=== PATIENT | female | born 1975 | race Caucasian/White ===

== ENCOUNTER 2016-11-07 13:05 | Inpatient (IN) | payer OTHER ==
[~2016-11-07] VITALS: Ht 147.3 cm; Wt 63.0 kg
[~2016-11-07 13:05] MED LIST: MECL-111 PO; OMEP20TA2 PO; VICOT
[2016-11-07] MEDS ORDERED: ALBU8HFA IH (13:45)
[2016-11-07] MEDS ORDERED: DULO30CA2 PO (13:45)
[2016-11-07] MEDS ORDERED: AMIT10TA6 PO (13:45)
[2016-11-07] MEDS ORDERED: PREG75 PO (13:45)
[2016-11-07] MEDS ORDERED: CETI-260 PO (13:45)
[2016-11-07] MEDS ORDERED: TRAM50TA4 PO (13:45)
[2016-11-07] MEDS ORDERED: BECL8.7A6 IH (13:45)
[2016-11-07] MEDS ORDERED: AMIT50TA3 PO (13:49)
[2016-11-07 13:55] LABS: BASOPHILS # (AUTO) 0.17 K/uL (0.00-0.20); EOSINOPHILS # (AUTO) 0.16 K/uL (0.00-0.70); EOSINOPHILS % (AUTO) 1.91 % (1.0-6.0); HEMATOCRIT 36.5 % (36-46); HEMOGLOBIN 12.2 g/dL (12.0-16.0); LYMPHOCYTES % (AUTO) 24.5 % (22.0-44.0); MEAN CORPUSCULAR HEMOGLOBIN 28.5 pg (26.0-34.0); MEAN CORPUSCULAR HGB CONC 33.3 G/dL (31.0-37.0); MEAN CORPUSCULAR VOLUME 86 fL (80-100); MONOCYTES # (AUTO) 0.6 K/uL (0.1-1.0); MONOCYTES % (AUTO) 7.6 % (2.0-9.0); NEUTROPHILS # (AUTO) 5.3 K/uL (1.8-7.7); PLATELET COUNT (AUTO) 277 K/uL (150-450); RED BLOOD CELL COUNT(AUTO) 4.26 MIL/uL (4.00-5.20); WHITE BLOOD COUNT (AUTO) 8.3 K/uL (4.5-11.0)
[2016-11-07 13:57] LABS: ANION GAP 7 mmol/L (8-16); CARBON DIOXIDE 28 mmol/L (22-29); CHLORIDE 103 mmol/L (98-107); CREATININE 0.78 mg/dL (0.60-1.30); GLOMERULAR FILTR. RATE CALC > 60 mL/min (>60); POTASSIUM 3.8 mmol/L (3.5-5.1); SODIUM SERUM 138 mmol/L (136-145); UREA NITROGEN, BLOOD 10 mg/dL (7-18)
[2016-11-07 14:03] LABS: ALANINE AMINOTRANSFERASE 24 U/L (12-78); ALBUMIN 3.3 g/dL (3.4-5.0); ASPARTATE AMINOTRANSFERASE 24 U/L (15-37); BILIRUBIN,TOTAL 0.1 mg/dL (0.1-1.0); TOTAL PROTEIN, SERUM 7.2 g/dL (6.4-8.2)
[2016-11-07] MEDS ORDERED: HydrOXYzine PAMOATE 50 MG CAPSULE PO PRN (14:45)
[2016-11-07] MEDS ORDERED: HALOPERIDOL 5 MG TABLET PO ONE (14:45)
[2016-11-07] MEDS ORDERED: LOPERAMIDE HCL 2 MG CAPSULE PO PRN (14:45)
[2016-11-07] MEDS ORDERED: QUEtiapine FUMARATE 100 MG TABLET PO PRN (14:45)
[2016-11-07] MEDS ORDERED: LORazepam 2 MG TABLET PO ONE (14:45)
[2016-11-07] MEDS ORDERED: GuaiFENesin/D-METHORPHAN [SUGAR-FREE] 200-20MG/10 ML SYRUP UDCUP PO PRN (14:45)
[2016-11-07] MEDS ORDERED: PROMETHAZINE HCL 25 MG TABLET PO PRN (14:45)
[2016-11-07] MEDS ORDERED: MAG HYDROX/AL HYDROX/SIMETH ES 30 ML SUSPENSION UDCUP PO PRN (14:45)
[2016-11-07] MEDS ORDERED: MAGNESIUM HYDROXIDE SUSPENSION 30 ML UDCUP PO PRN (14:45)
[2016-11-07] MEDS ORDERED: ACETAMINOPHEN 325 MG TABLET PO PRN (14:45)
[2016-11-07] MEDS ORDERED: TUBERCULIN, PURIFIED PROTEIN DERIVATIVE 5 TU/0.1 ML SYG ID ONE (14:45)
[2016-11-07] MEDS: THIAMINE HCL 100 MG TABLET PO SCH (17:11)
[2016-11-07] MEDS ORDERED: PNEUMOCOCCAL VACCINE POLYVALENT 0.5 ML VIAL [PPSV23] IM ONE (18:00)
[2016-11-07] MEDS ORDERED: INFLUENZA VIRUS VACCINE QVS 2016-17 (3YR+)/PF 60 MCG/0.5 ML SYRINGE IM ONE (18:00)
[2016-11-07 18:10] VITALS: BP 104/73
[2016-11-07] MEDS ORDERED: TraMADol HCL 50 MG TABLET PO PRN (21:00)
[2016-11-07] MEDS ORDERED: ALBUTEROL SULFATE HFA 90 MCG/PUFF 8 GM INHALER IH PRN (21:00)
[2016-11-07] MEDS ORDERED: QUEtiapine FUMARATE 200 MG TABLET PO SCH (21:00)
[2016-11-07] MEDS: PREGABALIN 75 MG CAPSULE PO SCH (22:03)
[2016-11-07] MEDS: BECLOMETHASONE DIPR 40 MCG/PUFF 8.7 GM INHALER IH SCH (22:03)
[2016-11-08 01:24] VITALS: BP 123/75
[2016-11-08 08:08] VITALS: BP 103/60
[2016-11-08 08:20] LABS: BASOPHILS % (AUTO) 0.5 % (0.0-2.0); EOSINOPHILS % (AUTO) 3.3 % (1.0-6.0); HEMATOCRIT 33.3 % (36-46); HEMOGLOBIN 11.1 g/dL (12.0-16.0); LYMPHOCYTES # (AUTO) 2.3 K/uL (1.0-4.8); MEAN CORPUSCULAR HEMOGLOBIN 28.7 pg (26.0-34.0); MEAN CORPUSCULAR HGB CONC 33.2 G/dL (31.0-37.0); MEAN CORPUSCULAR VOLUME 87 fL (80-100); MONOCYTES # (AUTO) 0.5 K/uL (0.1-1.0); MONOCYTES % (AUTO) 7.9 % (2.0-9.0); NEUTROPHILS # (AUTO) 3.1 K/uL (1.8-7.7); NEUTROPHILS % (AUTO) 50.3 % (40.0-70.0); PLATELET COUNT (AUTO) 253 K/uL (150-450); RED BLOOD CELL COUNT(AUTO) 3.85 MIL/uL (4.00-5.20); RED CELL DISTRIBUTION WIDTH 14.4 % (11.5-14.5); WHITE BLOOD COUNT (AUTO) 6.2 K/uL (4.5-11.0)
[2016-11-08 08:32] LABS: HEMOGLOBIN A1C 5.7 % (4.5-6.2)
[2016-11-08 09:08] LABS: ALANINE AMINOTRANSFERASE 20 U/L (12-78); ALBUMIN 2.6 g/dL (3.4-5.0); ANION GAP 6 mmol/L (8-16); ASPARTATE AMINOTRANSFERASE 21 U/L (15-37); BILIRUBIN,TOTAL 0.2 mg/dL (0.1-1.0); CALCIUM, TOTAL 8.4 mg/dL (8.8-10.5); CARBON DIOXIDE 27 mmol/L (22-29); CHLORIDE 108 mmol/L (98-107); CHOL/HDL RATIO 3.3 (3.9-5.7); CREATININE 0.77 mg/dL (0.60-1.30); GLOMERULAR FILTR. RATE CALC > 60 mL/min (>60); POTASSIUM 3.8 mmol/L (3.5-5.1); SODIUM SERUM 141 mmol/L (136-145); THYROID STIMULATING HORMONE 1.22 uIU/mL (0.36-3.74); UREA NITROGEN, BLOOD 12 mg/dL (7-18)
[2016-11-08] MEDS ORDERED: IBUPROFEN 400 MG TABLET PO PRN (09:45)
[2016-11-08] MEDS ORDERED: ALBUTEROL SULFATE HFA 90 MCG/PUFF 8 GM INHALER IH PRN (09:45)
[2016-11-08] MEDS ORDERED: ACETAMINOPHEN 325 MG TABLET PO PRN (09:45)
[2016-11-08] MEDS: FOLIC ACID 1 MG TABLET PO SCH (10:01)
[2016-11-08] MEDS: MECLIZINE HCL 25 MG TABLET PO SCH (10:01)
[2016-11-08] MEDS: CETIRIZINE HCL 10 MG TABLET PO SCH (10:01)
[2016-11-08] MEDS: THIAMINE HCL 100 MG TABLET PO SCH ×2 (10:01→16:33)
[2016-11-08] MEDS: NALTREXONE HCL 50 MG TABLET PO SCH (10:01)
[2016-11-08] MEDS: OMEPRAZOLE 20 MG CAPSULE PO SCH (10:01)
[2016-11-08] MEDS: DULoxetine HCL 20 MG CAPSULE PO SCH (10:01)
[2016-11-08] MEDS: MULTIVITAMINS WITH MINERALS, THERAPEUTIC TABLET PO SCH (10:01)
[2016-11-08 18:34] VITALS: BP 101/69
[2016-11-08] MEDS: PREGABALIN 75 MG CAPSULE PO SCH (20:30)
[2016-11-08] MEDS: BECLOMETHASONE DIPR 40 MCG/PUFF 8.7 GM INHALER IH SCH (20:30)
[2016-11-08] MEDS ORDERED: QUEtiapine FUMARATE 300 MG TABLET PO SCH (21:00)
[2016-11-08] MEDS: ZOLPIDEM TARTRATE 10 MG TABLET PO PRN (22:47)
[2016-11-09 04:23] VITALS: BP 101/67
[2016-11-09 08:33] LABS: HEMOGLOBIN A1C 5.3 % (4.5-6.2)
[2016-11-09 08:42] VITALS: BP 112/60
[2016-11-09] MEDS: CETIRIZINE HCL 10 MG TABLET PO SCH (08:44)
[2016-11-09] MEDS: FOLIC ACID 1 MG TABLET PO SCH (08:45)
[2016-11-09] MEDS: DULoxetine HCL 20 MG CAPSULE PO SCH (08:45)
[2016-11-09] MEDS: NALTREXONE HCL 50 MG TABLET PO SCH (08:45)
[2016-11-09] MEDS: OMEPRAZOLE 20 MG CAPSULE PO SCH (08:45)
[2016-11-09] MEDS: MECLIZINE HCL 25 MG TABLET PO SCH (08:45)
[2016-11-09] MEDS: MULTIVITAMINS WITH MINERALS, THERAPEUTIC TABLET PO SCH (08:45)
[2016-11-09] MEDS: THIAMINE HCL 100 MG TABLET PO SCH ×2 (08:45→16:00)
[2016-11-09 08:50] LABS: CHOL/HDL RATIO 3.2 (3.9-5.7); THYROID STIMULATING HORMONE 0.61 uIU/mL (0.36-3.74)
[2016-11-09] MEDS: LORazepam 2 MG TABLET PO PRN ×2 (09:27→16:09)
[2016-11-09] MEDS: HALOPERIDOL 5 MG TABLET PO PRN (16:09)
[2016-11-09 16:43] VITALS: BP 100/62
[2016-11-09] MEDS: PREGABALIN 75 MG CAPSULE PO SCH (20:30)
[2016-11-09] MEDS: BECLOMETHASONE DIPR 40 MCG/PUFF 8.7 GM INHALER IH SCH (20:32)
[2016-11-09] MEDS ORDERED: HALOPERIDOL 10 MG TABLET PO SCH (21:00)
[2016-11-09] MEDS: ZOLPIDEM TARTRATE 10 MG TABLET PO PRN (22:17)
[2016-11-10 00:35] VITALS: BP 108/62
[2016-11-10] MEDS: MECLIZINE HCL 25 MG TABLET PO SCH (08:26)
[2016-11-10] MEDS: OMEPRAZOLE 20 MG CAPSULE PO SCH (08:27)
[2016-11-10] MEDS: MULTIVITAMINS WITH MINERALS, THERAPEUTIC TABLET PO SCH (08:27)
[2016-11-10] MEDS: THIAMINE HCL 100 MG TABLET PO SCH ×2 (08:27→16:19)
[2016-11-10] MEDS: DULoxetine HCL 30 MG CAPSULE PO SCH (08:27)
[2016-11-10] MEDS: FOLIC ACID 1 MG TABLET PO SCH (08:27)
[2016-11-10] MEDS: CETIRIZINE HCL 10 MG TABLET PO SCH (08:27)
[2016-11-10] MEDS: NALTREXONE HCL 50 MG TABLET PO SCH (08:27)
[2016-11-10] MEDS: HALOPERIDOL 5 MG TABLET PO PRN (10:13)
[2016-11-10 10:49] VITALS: BP 108/75
[2016-11-10] MEDS: LORazepam 2 MG TABLET PO PRN ×2 (10:49→16:33)
[2016-11-10 16:09] VITALS: BP 112/68
[2016-11-10] MEDS: PREGABALIN 75 MG CAPSULE PO SCH (20:01)
[2016-11-10] MEDS: BECLOMETHASONE DIPR 40 MCG/PUFF 8.7 GM INHALER IH SCH (20:02)
[2016-11-10] MEDS ORDERED: HALOPERIDOL 10 MG TABLET PO SCH (21:00)
[2016-11-11 00:24] VITALS: BP 95/58
[2016-11-11] MEDS: NALTREXONE HCL 50 MG TABLET PO SCH (08:15)
[2016-11-11] MEDS: CETIRIZINE HCL 10 MG TABLET PO SCH (08:15)
[2016-11-11] MEDS: FOLIC ACID 1 MG TABLET PO SCH (08:15)
[2016-11-11] MEDS: DULoxetine HCL 30 MG CAPSULE PO SCH (08:15)
[2016-11-11] MEDS: MULTIVITAMINS WITH MINERALS, THERAPEUTIC TABLET PO SCH (08:15)
[2016-11-11] MEDS: OMEPRAZOLE 20 MG CAPSULE PO SCH (08:15)
[2016-11-11] MEDS: THIAMINE HCL 100 MG TABLET PO SCH (08:15)
[2016-11-11] MEDS: MECLIZINE HCL 25 MG TABLET PO SCH (08:15)
[2016-11-11] MEDS: HALOPERIDOL 5 MG TABLET PO PRN (08:23)
[2016-11-11 09:14] VITALS: BP 86/52
[2016-11-11] MEDS: LORazepam 2 MG TABLET PO PRN (11:08)
[2016-11-11] MEDS ORDERED: HALO10 PO (11:23)
[2016-11-11] MEDS ORDERED: NALT50 PO (11:23)
[2016-11-11] MEDS ORDERED: DULO30CA2 PO ×2 (11:23→12:03)
[2016-11-11] MEDS ORDERED: PREG75 PO (11:28)
[2016-11-11] MEDS ORDERED: HALO10TA15 PO (12:03)
[2016-11-11] MEDS ORDERED: NALT50TA10 PO (12:03)
[2017-02-21] MEDS ORDERED: FERR-89 PO (10:00)
== END 2016-11-11 14:30 | disposition home or self-care (01) | DRG 885 ==
LOC: EMS 13:06 → B2X 14:24
PROVIDERS: ADMIT Psychiatry & Neurology Psychiatry; ATTEND Psychiatry & Neurology Psychiatry
DX: F29 Unspecified psychosis not due to a substance or known physiological condition (principal); K86.1 Other chronic pancreatitis; F32.9 Major depressive disorder, single episode, unspecified; F41.9 Anxiety disorder, unspecified; M79.7 Fibromyalgia; K21.9 Gastro-esophageal reflux disease without esophagitis; F15.10 Other stimulant abuse, uncomplicated; J45.909 Unspecified asthma, uncomplicated; M19.90 Unspecified osteoarthritis, unspecified site; Z87.11 Personal history of peptic ulcer disease; Z79.899 Other long term (current) drug therapy; Z91.19 Patient's noncompliance with other medical treatment and regimen; Z98.51 Tubal ligation status; Z90.49 Acquired absence of other specified parts of digestive tract; Z90.710 Acquired absence of both cervix and uterus; Z28.21 Immunization not carried out because of patient refusal
CPT/HCPCS: 71020; 83036; 84439; 84443; 86592; 90471; 93005; 99285; G0480; J3535

== ENCOUNTER 2016-11-13 09:51 | Inpatient (IN) | payer OTHER ==
[~2016-11-13] VITALS: Ht 149.9 cm; Wt 65.7 kg
[~2016-11-13 09:51] MED LIST changes: +ALBU8HFA IH; +AMIT10TA6 PO; +AMIT50TA3 PO; +BECL8.7A6 IH; +CETI-260 PO; +DULO30CA2 PO; +HALO10 PO; +HALO10TA15 PO; +NALT50 PO; +NALT50TA10 PO; +PREG75 PO; +TRAM50TA4 PO
[2016-11-13 11:22] VITALS: BP 104/74
[2016-11-13] MEDS ORDERED: INFLUENZA VIRUS VACCINE QVS 2016-17 (3YR+)/PF 60 MCG/0.5 ML SYRINGE IM ONE (11:30)
[2016-11-13] MEDS ORDERED: MAGNESIUM HYDROXIDE SUSPENSION 30 ML UDCUP PO PRN (11:45)
[2016-11-13] MEDS ORDERED: ZOLPIDEM TARTRATE 10 MG TABLET PO PRN (11:45)
[2016-11-13] MEDS ORDERED: LOPERAMIDE HCL 2 MG CAPSULE PO PRN (11:45)
[2016-11-13] MEDS ORDERED: ACETAMINOPHEN 325 MG TABLET PO PRN (11:45)
[2016-11-13] MEDS ORDERED: MAG HYDROX/AL HYDROX/SIMETH ES 30 ML SUSPENSION UDCUP PO PRN (11:45)
[2016-11-13 19:27] VITALS: BP 123/96
[2016-11-13] MEDS: LORazepam 2 MG TABLET PO PRN (19:28)
[2016-11-13] MEDS: QUEtiapine FUMARATE 100 MG TABLET PO PRN (20:24)
[2016-11-14 05:00] VITALS: BP 103/65
[2016-11-14 06:52] VITALS: BP 128/75
[2016-11-14] MEDS: QUEtiapine FUMARATE 100 MG TABLET PO PRN ×2 (06:53→16:39)
[2016-11-14] MEDS: LORazepam 2 MG TABLET PO PRN ×3 (06:53→20:32)
[2016-11-14] MEDS ORDERED: INFLUENZA VIRUS VACCINE QVS 2016-17 (3YR+)/PF 60 MCG/0.5 ML SYRINGE IM ONE (07:15)
[2016-11-14 07:59] LABS: BASOPHILS % (AUTO) 1.1 % (0.0-2.0); EOSINOPHILS % (AUTO) 5.5 % (1.0-6.0); HEMATOCRIT 35.8 % (36-46); HEMOGLOBIN 11.8 g/dL (12.0-16.0); LYMPHOCYTES % (AUTO) 37.6 % (22.0-44.0); MEAN CORPUSCULAR HEMOGLOBIN 28.4 pg (26.0-34.0); MEAN CORPUSCULAR HGB CONC 32.9 G/dL (31.0-37.0); MEAN CORPUSCULAR VOLUME 86 fL (80-100); MONOCYTES # (AUTO) 0.5 K/uL (0.1-1.0); MONOCYTES % (AUTO) 6.7 % (2.0-9.0); NEUTROPHILS # (AUTO) 3.9 K/uL (1.8-7.7); NEUTROPHILS % (AUTO) 49.1 % (40.0-70.0); PLATELET COUNT (AUTO) 279 K/uL (150-450); RED BLOOD CELL COUNT(AUTO) 4.15 MIL/uL (4.00-5.20); RED CELL DISTRIBUTION WIDTH 14.7 % (11.5-14.5); WHITE BLOOD COUNT (AUTO) 7.9 K/uL (4.5-11.0)
[2016-11-14 08:44] LABS: ALANINE AMINOTRANSFERASE 23 U/L (12-78); ALBUMIN 2.8 g/dL (3.4-5.0); ANION GAP 9 mmol/L (8-16); ASPARTATE AMINOTRANSFERASE 20 U/L (15-37); BILIRUBIN,TOTAL 0.1 mg/dL (0.1-1.0); CALCIUM, TOTAL 8.5 mg/dL (8.8-10.5); CARBON DIOXIDE 25 mmol/L (22-29); CHLORIDE 107 mmol/L (98-107); CREATININE 0.81 mg/dL (0.60-1.30); GLOMERULAR FILTR. RATE CALC > 60 mL/min (>60); SODIUM SERUM 141 mmol/L (136-145); THYROID STIMULATING HORMONE 3.48 uIU/mL (0.36-3.74); TOTAL PROTEIN, SERUM 6.4 g/dL (6.4-8.2); UREA NITROGEN, BLOOD 13 mg/dL (7-18)
[2016-11-14 09:15] VITALS: BP 125/78
[2016-11-14] MEDS: DULoxetine HCL 30 MG CAPSULE PO SCH (09:30)
[2016-11-14 10:22] LABS: APPEARANCE,URINE CLEAR (CLEAR); GLUCOSE, URINE (UA) NEGATIVE (NEGATIVE); KETONES,URINE NEGATIVE (NEGATIVE); LEUKOCYTE ESTERASE ,URINE NEGATIVE (NEGATIVE); OCCULT BLOOD,URINE NEGATIVE (NEGATIVE); PROTEIN,URINE NEGATIVE (NEGATIVE)
[2016-11-14 10:25] LABS: ADD UA MICROSCOPIC NO
[2016-11-14 16:02] VITALS: BP 115/81
[2016-11-14] MEDS ORDERED: HALOPERIDOL 5 MG TABLET PO SCH (21:00)
[2016-11-15] VITALS (7 sets, daily range): BP systolic 88–114; BP diastolic 60–73
[2016-11-15] MEDS: QUEtiapine FUMARATE 100 MG TABLET PO PRN ×2 (06:36→15:52)
[2016-11-15] MEDS: HALOPERIDOL 5 MG TABLET PO SCH ×2 (09:45→20:30)
[2016-11-15] MEDS: DULoxetine HCL 30 MG CAPSULE PO SCH (09:46)
[2016-11-15] MEDS: LORazepam 2 MG TABLET PO PRN ×2 (13:42→21:31)
[2016-11-15] MEDS: PREGABALIN 75 MG CAPSULE PO SCH (20:30)
[2016-11-16 06:42] VITALS: BP 97/62
[2016-11-16] MEDS: DULoxetine HCL 30 MG CAPSULE PO SCH (08:37)
[2016-11-16] MEDS: HALOPERIDOL 5 MG TABLET PO SCH ×2 (08:37→20:37)
[2016-11-16] MEDS: QUEtiapine FUMARATE 100 MG TABLET PO PRN (08:37)
[2016-11-16 08:52] VITALS: BP 82/58
[2016-11-16 09:17] VITALS: BP 103/69
[2016-11-16] MEDS ORDERED: MOM30 PO (10:14)
[2016-11-16] MEDS ORDERED: QUET100T PO (10:14)
[2016-11-16] MEDS ORDERED: HALO5 PO (10:14)
[2016-11-16] MEDS ORDERED: LORA2TAB2 PO (10:14)
[2016-11-16] MEDS ORDERED: GuaiFENesin/D-METHORPHAN [SUGAR-FREE] 200-20MG/10 ML SYRUP UDCUP PO PRN (13:00)
[2016-11-16] MEDS ORDERED: HydrOXYzine PAMOATE 50 MG CAPSULE PO PRN (13:00)
[2016-11-16] MEDS: CEPHALEXIN MONOHYDRATE 500 MG CAPSULE PO SCH ×3 (13:59→20:37)
[2016-11-16] MEDS ORDERED: HALOPERIDOL 5 MG TABLET PO PRN (15:15)
[2016-11-16 16:15] VITALS: BP 101/61
[2016-11-16] MEDS: THIAMINE HCL 100 MG TABLET PO SCH (16:33)
[2016-11-16] MEDS: PREGABALIN 75 MG CAPSULE PO SCH (20:37)
[2016-11-17 02:20] VITALS: BP 98/64
[2016-11-17 08:43] VITALS: BP 108/63
[2016-11-17] MEDS: CEPHALEXIN MONOHYDRATE 500 MG CAPSULE PO SCH ×4 (09:47→20:35)
[2016-11-17] MEDS: THIAMINE HCL 100 MG TABLET PO SCH ×2 (09:47→16:47)
[2016-11-17] MEDS: DULoxetine HCL 30 MG CAPSULE PO SCH (09:47)
[2016-11-17] MEDS: FOLIC ACID 1 MG TABLET PO SCH (09:47)
[2016-11-17] MEDS: HALOPERIDOL 5 MG TABLET PO SCH ×2 (09:47→20:35)
[2016-11-17] MEDS: LORazepam 2 MG TABLET PO PRN ×2 (09:47→14:37)
[2016-11-17] MEDS: NALTREXONE HCL 50 MG TABLET PO SCH (09:47)
[2016-11-17] MEDS: MULTIVITAMINS WITH MINERALS, THERAPEUTIC TABLET PO SCH (09:47)
[2016-11-17] MEDS ORDERED: DULO20CA30 PO (13:55)
[2016-11-17] MEDS ORDERED: NALT50 PO (13:55)
[2016-11-17] MEDS ORDERED: HALO5 PO (13:55)
[2016-11-17] MEDS ORDERED: PREG75 PO (13:55)
[2016-11-17 16:05] VITALS: BP 104/68
[2016-11-17] MEDS: PREGABALIN 75 MG CAPSULE PO SCH (20:35)
[2016-11-18 05:12] VITALS: BP 122/75
[2016-11-18 07:56] LABS: BASOPHILS % (AUTO) 0.8 % (0.0-2.0); EOSINOPHILS % (AUTO) 3.6 % (1.0-6.0); HEMATOCRIT 35.4 % (36-46); HEMOGLOBIN 11.6 g/dL (12.0-16.0); LYMPHOCYTES # (AUTO) 3.2 K/uL (1.0-4.8); LYMPHOCYTES % (AUTO) 40.4 % (22.0-44.0); MEAN CORPUSCULAR HEMOGLOBIN 28.6 pg (26.0-34.0); MEAN CORPUSCULAR HGB CONC 32.8 G/dL (31.0-37.0); MEAN CORPUSCULAR VOLUME 87 fL (80-100); MONOCYTES # (AUTO) 0.7 K/uL (0.1-1.0); NEUTROPHILS # (AUTO) 3.6 K/uL (1.8-7.7); NEUTROPHILS % (AUTO) 46.2 % (40.0-70.0); PLATELET COUNT (AUTO) 310 K/uL (150-450); RED BLOOD CELL COUNT(AUTO) 4.07 MIL/uL (4.00-5.20); RED CELL DISTRIBUTION WIDTH 14.7 % (11.5-14.5); WHITE BLOOD COUNT (AUTO) 7.8 K/uL (4.5-11.0)
[2016-11-18] MEDS: NALTREXONE HCL 50 MG TABLET PO SCH (08:17)
[2016-11-18] MEDS: THIAMINE HCL 100 MG TABLET PO SCH (08:17)
[2016-11-18] MEDS: MULTIVITAMINS WITH MINERALS, THERAPEUTIC TABLET PO SCH (08:17)
[2016-11-18] MEDS: CEPHALEXIN MONOHYDRATE 500 MG CAPSULE PO SCH (08:17)
[2016-11-18] MEDS: FOLIC ACID 1 MG TABLET PO SCH (08:17)
[2016-11-18] MEDS: HALOPERIDOL 5 MG TABLET PO SCH (08:18)
[2016-11-18 08:19] LABS: ANION GAP 7 mmol/L (8-16); CALCIUM, TOTAL 8.3 mg/dL (8.8-10.5); CARBON DIOXIDE 26 mmol/L (22-29); CHLORIDE 104 mmol/L (98-107); CREATININE 0.76 mg/dL (0.60-1.30); GLOMERULAR FILTR. RATE CALC > 60 mL/min (>60); POTASSIUM 3.9 mmol/L (3.5-5.1); SODIUM SERUM 137 mmol/L (136-145); UREA NITROGEN, BLOOD 14 mg/dL (7-18)
[2016-11-18] MEDS ORDERED: DULoxetine HCL 20 MG CAPSULE PO SCH (09:00)
[2016-11-18] MEDS ORDERED: DULO20CA30 PO (09:03)
[2016-11-18] MEDS ORDERED: THIA100 PO (09:09)
[2016-11-18] MEDS ORDERED: FOLI1 PO (09:09)
[2016-11-18] MEDS ORDERED: MULT-248 PO (09:09)
[2016-11-18] MEDS ORDERED: CEPH500 PO (09:09)
[2017-02-21] MEDS ORDERED: FERR-89 PO (10:00)
== END 2016-11-18 09:25 | disposition home or self-care (01) | DRG 885 ==
LOC: B2S 12:04 → B2X 12:04 → EDSTATUS 12:11 → B2X 23:05
PROVIDERS: ADMIT Psychiatry & Neurology Psychiatry; ATTEND Psychiatry & Neurology Psychiatry
PROC: 3E0234Z Introduction of Serum, Toxoid and Vaccine into Muscle, Percutaneous Approach (ICD-10-PCS; principal; 2016-11-14)
DX: F25.0 Schizoaffective disorder, bipolar type (principal); K86.1 Other chronic pancreatitis; R45.851 Suicidal ideations; F12.10 Cannabis abuse, uncomplicated; F15.10 Other stimulant abuse, uncomplicated; J45.909 Unspecified asthma, uncomplicated; K21.9 Gastro-esophageal reflux disease without esophagitis; J30.9 Allergic rhinitis, unspecified; R40.0 Somnolence; I95.9 Hypotension, unspecified; F41.9 Anxiety disorder, unspecified; G89.29 Other chronic pain; M19.90 Unspecified osteoarthritis, unspecified site; M79.7 Fibromyalgia; Z90.49 Acquired absence of other specified parts of digestive tract; Z90.710 Acquired absence of both cervix and uterus; Z88.8 Allergy status to other drugs, medicaments and biological substances; Z23 Encounter for immunization; Z87.11 Personal history of peptic ulcer disease; Z91.5 Personal history of self-harm; Z91.14 Patient's other noncompliance with medication regimen
CPT/HCPCS: 80173; 80307; 84439; 84443; 87081; 90471; 93005

== ENCOUNTER 2016-11-13 13:39 | Emergency (ER) | payer OTHER ==
[~2016-11-13] VITALS: Ht 139.7 cm; Wt 59.1 kg
[~2016-11-13 13:39] MED LIST changes: -AMIT10TA6 PO; -AMIT50TA3 PO; -TRAM50TA4 PO; -VICOT
[2016-11-13] MEDS ORDERED: SODIUM CHLORIDE 0.9% 1,000 ML IV ONE (14:30)
[2016-11-13 15:03] LABS: BASOPHILS % (AUTO) 0.5 % (0.0-2.0); EOSINOPHILS % (AUTO) 4.6 % (1.0-6.0); HEMATOCRIT 36.4 % (36-46); HEMOGLOBIN 12.2 g/dL (12.0-16.0); LYMPHOCYTES # (AUTO) 2.6 K/uL (1.0-4.8); LYMPHOCYTES % (AUTO) 27.4 % (22.0-44.0); MEAN CORPUSCULAR HEMOGLOBIN 28.5 pg (26.0-34.0); MEAN CORPUSCULAR HGB CONC 33.6 G/dL (31.0-37.0); MEAN CORPUSCULAR VOLUME 85 fL (80-100); MONOCYTES # (AUTO) 0.6 K/uL (0.1-1.0); MONOCYTES % (AUTO) 6.2 % (2.0-9.0); NEUTROPHILS # (AUTO) 5.9 K/uL (1.8-7.7); NEUTROPHILS % (AUTO) 61.3 % (40.0-70.0); PLATELET COUNT (AUTO) 279 K/uL (150-450); RED BLOOD CELL COUNT(AUTO) 4.28 MIL/uL (4.00-5.20); RED CELL DISTRIBUTION WIDTH 13.9 % (11.5-14.5); WHITE BLOOD COUNT (AUTO) 9.6 K/uL (4.5-11.0)
[2016-11-13 15:25] LABS: ANION GAP 7 mmol/L (8-16); CALCIUM, TOTAL 8.9 mg/dL (8.8-10.5); CARBON DIOXIDE 26 mmol/L (22-29); CHLORIDE 107 mmol/L (98-107); CREATININE 0.96 mg/dL (0.60-1.30); GLOMERULAR FILTR. RATE CALC > 60 mL/min (>60); POTASSIUM 4.4 mmol/L (3.5-5.1); SODIUM SERUM 140 mmol/L (136-145); UREA NITROGEN, BLOOD 9 mg/dL (7-18)
[2016-11-13 15:32] LABS: ALANINE AMINOTRANSFERASE 30 U/L (12-78); ALBUMIN 3.3 g/dL (3.4-5.0); ASPARTATE AMINOTRANSFERASE 21 U/L (15-37); BILIRUBIN,TOTAL 0.1 mg/dL (0.1-1.0); TOTAL PROTEIN, SERUM 7.3 g/dL (6.4-8.2)
[2016-11-13 16:06] LABS: ACETAMINOPHEN < 2 mcg/mL (10-30)
[2016-11-13 16:23] LABS: SALICYLATE < 2.8 mg/dL (2.8-20.0)
[2016-11-13] MEDS ORDERED: ONDANSETRON HCL 4 MG/2 ML VIAL IVP ONE (17:45)
[2016-11-13 18:00] VITALS: BP 130/78
[2017-02-21] MEDS ORDERED: FERR-89 PO (10:00)
== END 2016-11-13 18:17 | disposition home or self-care (01) ==
LOC: EMS 13:42
DX: T43.012A Poisoning by tricyclic antidepressants, intentional self-harm, initial encounter (principal); F25.9 Schizoaffective disorder, unspecified; F19.90 Other psychoactive substance use, unspecified, uncomplicated; Z88.8 Allergy status to other drugs, medicaments and biological substances; Y92.89 Other specified places as the place of occurrence of the external cause
CPT/HCPCS: 36415; 80053; 80307; 84703; 85025; 93005; 96361; 96374; 99285; G0480 ×2; G0481; J2405; J7030

== ENCOUNTER 2016-11-16 10:01 | Emergency (ER) | payer OTHER ==
[~2016-11-16] VITALS: Ht 147.3 cm; Wt 56.8 kg
[2016-11-16 10:08] VITALS: BP 112/75
[2016-11-16] MEDS ORDERED: LORA2TAB2 PO (10:14)
[2016-11-16] MEDS ORDERED: MOM30 PO (10:14)
[2016-11-16] MEDS ORDERED: HALO5 PO (10:14)
[2016-11-16] MEDS ORDERED: QUET100T PO (10:14)
[2016-11-16] MEDS ORDERED: CEPHALEXIN MONOHYDRATE 500 MG CAPSULE PO ONE (10:30)
[2016-11-16] MEDS ORDERED: IBUPROFEN 600 MG TABLET PO ONE (10:30)
[2016-11-17] MEDS ORDERED: NALT50 PO (13:55)
[2016-11-17] MEDS ORDERED: PREG75 PO (13:55)
[2016-11-17] MEDS ORDERED: HALO5 PO (13:55)
[2016-11-17] MEDS ORDERED: DULO20CA30 PO (13:55)
[2017-02-21] MEDS ORDERED: FERR-89 PO (10:00)
== END 2016-11-16 11:23 | disposition other institution (70) ==
LOC: EMS 10:03
DX: T78.49XA Other allergy, initial encounter (principal); F25.9 Schizoaffective disorder, unspecified; M54.5 Low back pain; F32.9 Major depressive disorder, single episode, unspecified; Z88.8 Allergy status to other drugs, medicaments and biological substances; X58.XXXA Exposure to other specified factors, initial encounter
CPT/HCPCS: 99283

== ENCOUNTER 2017-02-09 12:09 | Inpatient (IN) | payer MEDICAID ==
[~2017-02-09] VITALS: Ht 147.3 cm; Wt 67.4 kg
[~2017-02-09 12:09] MED LIST changes: -ALBU8HFA IH; -BECL8.7A6 IH; +CEPH500 PO; -CETI-260 PO; +DULO20CA30 PO; -DULO30CA2 PO; +FOLI1 PO; -HALO10 PO; +HALO5 PO; -MECL-111 PO; +MULT-248 PO; -OMEP20TA2 PO; +THIA100 PO
[2017-02-09 13:00] VITALS: BP 129/73
[2017-02-09] MEDS ORDERED: HydrOXYzine PAMOATE 50 MG CAPSULE PO PRN (13:15)
[2017-02-09] MEDS ORDERED: MAGNESIUM HYDROXIDE SUSPENSION 30 ML UDCUP PO PRN (13:15)
[2017-02-09] MEDS ORDERED: GuaiFENesin/D-METHORPHAN [SUGAR-FREE] 200-20MG/10 ML SYRUP UDCUP PO PRN (13:15)
[2017-02-09] MEDS ORDERED: PALIPERIDONE PALMITATE 234 MG/1.5 ML SYRINGE IM ONE (13:15)
[2017-02-09] MEDS ORDERED: LOPERAMIDE HCL 2 MG CAPSULE PO PRN (13:15)
[2017-02-09] MEDS ORDERED: ACETAMINOPHEN 325 MG TABLET PO PRN (13:15)
[2017-02-09] MEDS ORDERED: MAG HYDROX/AL HYDROX/SIMETH ES 30 ML SUSPENSION UDCUP PO PRN (13:15)
[2017-02-09] MEDS ORDERED: PROMETHAZINE HCL 25 MG TABLET PO PRN (13:15)
[2017-02-09] MEDS: QUEtiapine FUMARATE 100 MG TABLET PO PRN (13:50)
[2017-02-09] MEDS: LORazepam 2 MG TABLET PO PRN (13:51)
[2017-02-09 16:13] VITALS: BP 118/65
[2017-02-09] MEDS: THIAMINE HCL 100 MG TABLET PO SCH (16:44)
[2017-02-09] MEDS: PREGABALIN 75 MG CAPSULE PO SCH (20:27)
[2017-02-09] MEDS: ZOLPIDEM TARTRATE 10 MG TABLET PO PRN (20:39)
[2017-02-10 04:08] VITALS: BP 110/67
[2017-02-10] MEDS: LORazepam 2 MG TABLET PO PRN ×2 (04:09→12:11)
[2017-02-10 08:28] LABS: BASOPHILS # (AUTO) 0.05 K/uL (0.00-0.20); BASOPHILS % (AUTO) 0.6 % (0.0-2.0); EOSINOPHILS # (AUTO) 0.07 K/uL (0.00-0.70); EOSINOPHILS % (AUTO) 0.78 % (1.0-6.0); HEMATOCRIT 35.8 % (36-46); HEMOGLOBIN 11.9 g/dL (12.0-16.0); LYMPHOCYTES % (AUTO) 33.1 % (22.0-44.0); MEAN CORPUSCULAR HEMOGLOBIN 29.3 pg (26.0-34.0); MEAN CORPUSCULAR HGB CONC 33.4 G/dL (31.0-37.0); MEAN CORPUSCULAR VOLUME 88 fL (80-100); MONOCYTES # (AUTO) 0.9 K/uL (0.1-1.0); MONOCYTES % (AUTO) 9.9 % (2.0-9.0); NEUTROPHILS % (AUTO) 55.6 % (40.0-70.0); PLATELET COUNT (AUTO) 284 K/uL (150-450); RED BLOOD CELL COUNT(AUTO) 4.08 MIL/uL (4.00-5.20); RED CELL DISTRIBUTION WIDTH 15.5 % (11.5-14.5); WHITE BLOOD COUNT (AUTO) 8.9 K/uL (4.5-11.0)
[2017-02-10] MEDS: NALTREXONE HCL 50 MG TABLET PO SCH (08:33)
[2017-02-10] MEDS: FOLIC ACID 1 MG TABLET PO SCH (08:33)
[2017-02-10] MEDS: THIAMINE HCL 100 MG TABLET PO SCH ×2 (08:33→16:16)
[2017-02-10] MEDS: MULTIVITAMINS, THERAPEUTIC TABLET PO SCH (08:33)
[2017-02-10] MEDS: DULoxetine HCL 20 MG CAPSULE PO SCH (08:33)
[2017-02-10] MEDS ORDERED: MULTIVITAMINS WITH MINERALS, THERAPEUTIC TABLET PO SCH (09:00)
[2017-02-10 09:17] LABS: HEMOGLOBIN A1C 5.7 % (4.5-6.2)
[2017-02-10 09:55] LABS: ALANINE AMINOTRANSFERASE 21 U/L (12-78); ALBUMIN 3.3 g/dL (3.4-5.0); ANION GAP 10 mmol/L (8-16); ASPARTATE AMINOTRANSFERASE 14 U/L (15-37); BILIRUBIN,TOTAL 0.3 mg/dL (0.1-1.0); CALCIUM, TOTAL 8.7 mg/dL (8.8-10.5); CARBON DIOXIDE 25 mmol/L (22-29); CHLORIDE 105 mmol/L (98-107); CHOL/HDL RATIO 2.8 (3.9-5.7); CREATININE 0.72 mg/dL (0.60-1.30); GLOMERULAR FILTR. RATE CALC > 60 mL/min (>60); SODIUM SERUM 140 mmol/L (136-145); TOTAL PROTEIN, SERUM 7.2 g/dL (6.4-8.2); UREA NITROGEN, BLOOD 13 mg/dL (7-18)
[2017-02-10 10:14] LABS: APPEARANCE,URINE CLOUDY (CLEAR); GLUCOSE, URINE (UA) NEGATIVE (NEGATIVE); KETONES,URINE 40 mg/dL (NEGATIVE); LEUKOCYTE ESTERASE ,URINE NEGATIVE (NEGATIVE); OCCULT BLOOD,URINE NEGATIVE (NEGATIVE); PROTEIN,URINE POS 1+ (NEGATIVE)
[2017-02-10 10:31] LABS: ADD UA MICROSCOPIC YES
[2017-02-10 10:35] LABS: RBC,URINE None Seen /HPF (0-2)
[2017-02-10 10:36] LABS: SQUAMOUS EPITHELIAL CELL,UR Many /LPF (None Seen); WBC,URINE 0-2 /HPF (0-5)
[2017-02-10] MEDS ORDERED: POTASSIUM CHLORIDE 20 MEQ ER TABLET PO ONE (12:00)
[2017-02-10 12:27] VITALS: BP_SYST 108; BP_SYST 115; BP_DIAS 63; BP_DIAS 69
[2017-02-10] MEDS: QUEtiapine FUMARATE 100 MG TABLET PO PRN (12:50)
[2017-02-10 16:00] VITALS: BP 108/64
[2017-02-10] MEDS ORDERED: MAGNESIUM HYDROXIDE SUSPENSION 30 ML UDCUP PO PRN (20:30)
[2017-02-10] MEDS ORDERED: ALBUTEROL SULFATE HFA 90 MCG/PUFF 8 GM INHALER IH PRN (20:30)
[2017-02-10] MEDS: PREGABALIN 75 MG CAPSULE PO SCH (20:52)
[2017-02-11 06:00] VITALS: BP 120/69
[2017-02-11] MEDS: FERROUS SULFATE 325 MG EC TABLET PO SCH ×2 (07:22→16:52)
[2017-02-11 08:54] VITALS: BP 105/66
[2017-02-11] MEDS: DULoxetine HCL 20 MG CAPSULE PO SCH (08:57)
[2017-02-11] MEDS: THIAMINE HCL 100 MG TABLET PO SCH ×2 (08:58→16:52)
[2017-02-11] MEDS: NALTREXONE HCL 50 MG TABLET PO SCH (08:58)
[2017-02-11] MEDS: FOLIC ACID 1 MG TABLET PO SCH (08:58)
[2017-02-11] MEDS: MULTIVITAMINS, THERAPEUTIC TABLET PO SCH (08:58)
[2017-02-11 09:48] LABS: ANION GAP 10 mmol/L (8-16); CALCIUM, TOTAL 8.9 mg/dL (8.8-10.5); CARBON DIOXIDE 25 mmol/L (22-29); CHLORIDE 110 mmol/L (98-107); CHOL/HDL RATIO 3.1 (3.9-5.7); CREATININE 0.68 mg/dL (0.60-1.30); GLOMERULAR FILTR. RATE CALC > 60 mL/min (>60); POTASSIUM 4.5 mmol/L (3.5-5.1); SODIUM SERUM 145 mmol/L (136-145); THYROID STIMULATING HORMONE 0.28 uIU/mL (0.36-3.74); UREA NITROGEN, BLOOD 16 mg/dL (7-18)
[2017-02-11] MEDS: QUEtiapine FUMARATE 100 MG TABLET PO PRN ×3 (10:05→20:30)
[2017-02-11] MEDS: LORazepam 2 MG TABLET PO PRN ×2 (10:05→20:29)
[2017-02-11 16:00] VITALS: BP 108/69
[2017-02-11] MEDS: PREGABALIN 75 MG CAPSULE PO SCH (20:06)
[2017-02-12] MEDS: FERROUS SULFATE 325 MG EC TABLET PO SCH ×2 (06:27→16:30)
[2017-02-12] MEDS: MULTIVITAMINS, THERAPEUTIC TABLET PO SCH (09:45)
[2017-02-12] MEDS: FOLIC ACID 1 MG TABLET PO SCH (09:45)
[2017-02-12] MEDS: NALTREXONE HCL 50 MG TABLET PO SCH (09:46)
[2017-02-12] MEDS: THIAMINE HCL 100 MG TABLET PO SCH ×2 (09:46→16:30)
[2017-02-12] MEDS: DULoxetine HCL 20 MG CAPSULE PO SCH (09:46)
[2017-02-12 09:51] VITALS: BP 93/67
[2017-02-12] MEDS: QUEtiapine FUMARATE 100 MG TABLET PO PRN (13:44)
[2017-02-12 16:05] VITALS: BP 111/64
[2017-02-12] MEDS: LORazepam 2 MG TABLET PO PRN (16:30)
[2017-02-12] MEDS: ZOLPIDEM TARTRATE 10 MG TABLET PO PRN (20:06)
[2017-02-12] MEDS: PREGABALIN 75 MG CAPSULE PO SCH (20:06)
[2017-02-13 00:50] VITALS: BP 101/67
[2017-02-13] MEDS: QUEtiapine FUMARATE 100 MG TABLET PO PRN ×2 (06:06→12:16)
[2017-02-13] MEDS: FERROUS SULFATE 325 MG EC TABLET PO SCH ×2 (06:12→16:50)
[2017-02-13 08:22] VITALS: BP 97/56
[2017-02-13] MEDS ORDERED: PALIPERIDONE PALMITATE 156 MG/ML SYRINGE IM ONE (09:00)
[2017-02-13] MEDS: THIAMINE HCL 100 MG TABLET PO SCH ×2 (09:52→16:50)
[2017-02-13] MEDS: NALTREXONE HCL 50 MG TABLET PO SCH (09:52)
[2017-02-13] MEDS: MULTIVITAMINS, THERAPEUTIC TABLET PO SCH (09:52)
[2017-02-13] MEDS: DULoxetine HCL 20 MG CAPSULE PO SCH (09:52)
[2017-02-13] MEDS: FOLIC ACID 1 MG TABLET PO SCH (09:52)
[2017-02-13 10:40] VITALS: BP 94/62
[2017-02-13 12:16] VITALS: BP 108/68
[2017-02-13] MEDS: LORazepam 2 MG TABLET PO PRN ×2 (14:34→20:52)
[2017-02-13 16:10] VITALS: BP 112/66
[2017-02-13] MEDS: PREGABALIN 75 MG CAPSULE PO SCH (20:52)
[2017-02-14] MEDS: QUEtiapine FUMARATE 100 MG TABLET PO PRN ×3 (00:03→17:47)
[2017-02-14 02:58] VITALS: BP 106/66
[2017-02-14] MEDS: FERROUS SULFATE 325 MG EC TABLET PO SCH ×2 (07:00→17:46)
[2017-02-14 08:29] VITALS: BP 88/68
[2017-02-14] MEDS: DULoxetine HCL 20 MG CAPSULE PO SCH (09:33)
[2017-02-14] MEDS: MULTIVITAMINS, THERAPEUTIC TABLET PO SCH (09:33)
[2017-02-14] MEDS: THIAMINE HCL 100 MG TABLET PO SCH ×2 (09:33→17:46)
[2017-02-14] MEDS: NALTREXONE HCL 50 MG TABLET PO SCH (09:33)
[2017-02-14] MEDS: FOLIC ACID 1 MG TABLET PO SCH (09:33)
[2017-02-14] MEDS: LORazepam 2 MG TABLET PO PRN (15:33)
[2017-02-14 16:00] VITALS: BP 120/67
[2017-02-14] MEDS: PREGABALIN 75 MG CAPSULE PO SCH (20:52)
[2017-02-15] MEDS: FERROUS SULFATE 325 MG EC TABLET PO SCH ×2 (06:37→17:02)
[2017-02-15 07:11] VITALS: BP 107/69
[2017-02-15] MEDS: QUEtiapine FUMARATE 100 MG TABLET PO PRN ×3 (07:16→16:10)
[2017-02-15 08:21] VITALS: BP 111/70
[2017-02-15] MEDS: DULoxetine HCL 20 MG CAPSULE PO SCH (08:26)
[2017-02-15] MEDS: NALTREXONE HCL 50 MG TABLET PO SCH (08:26)
[2017-02-15] MEDS: FOLIC ACID 1 MG TABLET PO SCH (08:26)
[2017-02-15] MEDS: LORazepam 2 MG TABLET PO PRN ×2 (08:26→18:43)
[2017-02-15] MEDS: THIAMINE HCL 100 MG TABLET PO SCH ×2 (08:26→17:02)
[2017-02-15] MEDS: MULTIVITAMINS, THERAPEUTIC TABLET PO SCH (08:26)
[2017-02-15 16:00] VITALS: BP 104/67
[2017-02-15] MEDS: PREGABALIN 75 MG CAPSULE PO SCH (20:24)
[2017-02-15] MEDS ORDERED: OLANZapine 5 MG RAPDIS TABLET PO SCH (21:00)
[2017-02-16 06:40] VITALS: BP 104/60
[2017-02-16] MEDS: FERROUS SULFATE 325 MG EC TABLET PO SCH ×2 (06:59→16:08)
[2017-02-16 08:06] VITALS: BP 102/59
[2017-02-16] MEDS: THIAMINE HCL 100 MG TABLET PO SCH ×2 (09:16→16:08)
[2017-02-16] MEDS: MULTIVITAMINS, THERAPEUTIC TABLET PO SCH (09:16)
[2017-02-16] MEDS: FOLIC ACID 1 MG TABLET PO SCH (09:16)
[2017-02-16] MEDS: NALTREXONE HCL 50 MG TABLET PO SCH (09:16)
[2017-02-16] MEDS: DULoxetine HCL 30 MG CAPSULE PO SCH (09:16)
[2017-02-16] MEDS: OLANZapine 5 MG RAPDIS TABLET PO PRN ×2 (09:35→16:37)
[2017-02-16] MEDS: LORazepam 2 MG TABLET PO PRN (11:23)
[2017-02-16 17:03] VITALS: BP 99/67
[2017-02-16] MEDS: PREGABALIN 75 MG CAPSULE PO SCH (20:24)
[2017-02-16] MEDS ORDERED: OLANZapine 10 MG RAPDIS TABLET PO SCH (21:00)
[2017-02-17 03:11] VITALS: BP 110/69
[2017-02-17] MEDS: OLANZapine 5 MG RAPDIS TABLET PO PRN (03:22)
[2017-02-17] MEDS: FERROUS SULFATE 325 MG EC TABLET PO SCH ×2 (07:20→17:35)
[2017-02-17 08:36] VITALS: BP 100/64
[2017-02-17] MEDS: MULTIVITAMINS, THERAPEUTIC TABLET PO SCH (09:09)
[2017-02-17] MEDS: NALTREXONE HCL 50 MG TABLET PO SCH (09:09)
[2017-02-17] MEDS: FOLIC ACID 1 MG TABLET PO SCH (09:09)
[2017-02-17] MEDS: DULoxetine HCL 30 MG CAPSULE PO SCH (09:10)
[2017-02-17] MEDS: THIAMINE HCL 100 MG TABLET PO SCH ×2 (09:10→17:35)
[2017-02-17] MEDS ORDERED: HALOPERIDOL LACTATE 5 MG/ML VIAL IM ONE (12:15)
[2017-02-17] MEDS ORDERED: LORazepam 2 MG/ML VIAL IM ONE (12:15)
[2017-02-17] MEDS ORDERED: DiphenhydrAMINE HCL 50 MG/ML VIAL IM ONE (12:15)
[2017-02-17] MEDS: IBUPROFEN 400 MG TABLET PO PRN (14:44)
[2017-02-17] MEDS ORDERED: HALOPERIDOL 5 MG TABLET PO PRN (15:15)
[2017-02-17 16:15] VITALS: BP 112/72
[2017-02-17] MEDS: HALOPERIDOL 2 MG TABLET PO SCH ×2 (17:00→21:00)
[2017-02-17] MEDS: LORazepam 2 MG TABLET PO PRN (17:35)
[2017-02-17] MEDS: PREGABALIN 75 MG CAPSULE PO SCH (22:20)
[2017-02-18 01:59] VITALS: BP 110/73
[2017-02-18] MEDS: LORazepam 2 MG TABLET PO PRN ×2 (02:06→16:41)
[2017-02-18] MEDS: FERROUS SULFATE 325 MG EC TABLET PO SCH ×2 (06:56→16:41)
[2017-02-18 08:00] VITALS: BP 105/66
[2017-02-18] MEDS: HALOPERIDOL 2 MG TABLET PO SCH ×4 (08:37→20:21)
[2017-02-18] MEDS: NALTREXONE HCL 50 MG TABLET PO SCH (08:37)
[2017-02-18] MEDS: FOLIC ACID 1 MG TABLET PO SCH (08:37)
[2017-02-18] MEDS: THIAMINE HCL 100 MG TABLET PO SCH ×2 (08:37→16:41)
[2017-02-18] MEDS: DULoxetine HCL 30 MG CAPSULE PO SCH (08:37)
[2017-02-18] MEDS: MULTIVITAMINS, THERAPEUTIC TABLET PO SCH (08:37)
[2017-02-18 16:00] VITALS: BP 108/73
[2017-02-18] MEDS: PREGABALIN 75 MG CAPSULE PO SCH (20:21)
[2017-02-18] MEDS: ZOLPIDEM TARTRATE 10 MG TABLET PO PRN (20:21)
[2017-02-19 06:05] VITALS: BP 126/78
[2017-02-19] MEDS: FERROUS SULFATE 325 MG EC TABLET PO SCH ×2 (06:29→16:45)
[2017-02-19 08:06] VITALS: BP 115/67
[2017-02-19] MEDS: FOLIC ACID 1 MG TABLET PO SCH (09:15)
[2017-02-19] MEDS: NALTREXONE HCL 50 MG TABLET PO SCH (09:15)
[2017-02-19] MEDS: DULoxetine HCL 30 MG CAPSULE PO SCH (09:15)
[2017-02-19] MEDS: THIAMINE HCL 100 MG TABLET PO SCH (09:15)
[2017-02-19] MEDS: MULTIVITAMINS, THERAPEUTIC TABLET PO SCH (09:15)
[2017-02-19] MEDS: HALOPERIDOL 2 MG TABLET PO SCH (09:16)
[2017-02-19] MEDS: LORazepam 2 MG TABLET PO PRN ×2 (09:48→20:51)
[2017-02-19] MEDS: QUEtiapine FUMARATE 100 MG TABLET PO PRN (11:24)
[2017-02-19 16:13] VITALS: BP 111/68
[2017-02-19] MEDS: PREGABALIN 75 MG CAPSULE PO SCH (20:40)
[2017-02-19] MEDS ORDERED: QUEtiapine FUMARATE 200 MG TABLET PO SCH (21:00)
[2017-02-19] MEDS: ZOLPIDEM TARTRATE 10 MG TABLET PO PRN (22:20)
[2017-02-20 00:30] VITALS: BP 101/65
[2017-02-20] MEDS: FERROUS SULFATE 325 MG EC TABLET PO SCH ×2 (07:05→16:30)
[2017-02-20 08:07] VITALS: BP 105/69
[2017-02-20] MEDS: MULTIVITAMINS, THERAPEUTIC TABLET PO SCH (08:52)
[2017-02-20] MEDS: DULoxetine HCL 30 MG CAPSULE PO SCH (08:52)
[2017-02-20] MEDS: NALTREXONE HCL 50 MG TABLET PO SCH (08:53)
[2017-02-20] MEDS: QUEtiapine FUMARATE 100 MG TABLET PO PRN (10:08)
[2017-02-20] MEDS ORDERED: NALT50 PO (15:04)
[2017-02-20] MEDS ORDERED: PREG75 PO (15:04)
[2017-02-20] MEDS ORDERED: QUET300T18 PO (15:04)
[2017-02-20] MEDS ORDERED: QUET25TA34 PO (15:04)
[2017-02-20] MEDS ORDERED: DULO30CA2 PO (15:04)
[2017-02-20 16:10] VITALS: BP 118/76
[2017-02-20] MEDS: QUEtiapine FUMARATE 25 MG TABLET PO SCH (16:30)
[2017-02-20] MEDS: LORazepam 2 MG TABLET PO PRN (16:31)
[2017-02-20] MEDS: PREGABALIN 75 MG CAPSULE PO SCH (20:25)
[2017-02-20] MEDS ORDERED: QUEtiapine FUMARATE 300 MG TABLET PO SCH (21:00)
[2017-02-20] MEDS: ZOLPIDEM TARTRATE 10 MG TABLET PO PRN (21:19)
[2017-02-20 22:05] VITALS: BP 108/72
[2017-02-20] MEDS: IBUPROFEN 400 MG TABLET PO PRN (22:08)
[2017-02-21 00:01] VITALS: BP 106/64
[2017-02-21] MEDS: LORazepam 2 MG TABLET PO PRN ×2 (00:01→10:16)
[2017-02-21] MEDS: FERROUS SULFATE 325 MG EC TABLET PO SCH (06:42)
[2017-02-21 09:09] VITALS: BP 89/55
[2017-02-21] MEDS: DULoxetine HCL 30 MG CAPSULE PO SCH (09:24)
[2017-02-21] MEDS: NALTREXONE HCL 50 MG TABLET PO SCH (09:24)
[2017-02-21] MEDS: MULTIVITAMINS, THERAPEUTIC TABLET PO SCH (09:24)
[2017-02-21] MEDS: QUEtiapine FUMARATE 25 MG TABLET PO SCH (09:24)
[2017-02-21 09:40] VITALS: BP 101/72
[2017-02-21] MEDS ORDERED: FERS325 PO (10:00)
[2017-03-09] MEDS ORDERED: PALIPERIDONE PALMITATE 234 MG/1.5 ML SYRINGE IM SCH (09:00)
== END 2017-02-21 12:25 | disposition home or self-care (01) | DRG 750 ==
LOC: B2S 13:21
PROVIDERS: ADMIT Psychiatry & Neurology Psychiatry; ATTEND Psychiatry & Neurology Psychiatry
PROC: GZ51ZZZ Individual Psychotherapy, Behavioral (ICD-10-PCS; principal; 2017-02-09)
PROC: HZ2ZZZZ Detoxification Services for Substance Abuse Treatment (ICD-10-PCS; 2017-02-09)
PROC: HZ84ZZZ Medication Management for Substance Abuse Treatment, Naltrexone (ICD-10-PCS; 2017-02-09)
DX: F25.0 Schizoaffective disorder, bipolar type (principal); K86.1 Other chronic pancreatitis; M79.7 Fibromyalgia; F09 Unspecified mental disorder due to known physiological condition; J45.909 Unspecified asthma, uncomplicated; M19.90 Unspecified osteoarthritis, unspecified site; F41.9 Anxiety disorder, unspecified; D64.9 Anemia, unspecified; E87.6 Hypokalemia; F17.200 Nicotine dependence, unspecified, uncomplicated; F15.10 Other stimulant abuse, uncomplicated; Z71.51 Drug abuse counseling and surveillance of drug abuser; Z88.8 Allergy status to other drugs, medicaments and biological substances; Z91.19 Patient's noncompliance with other medical treatment and regimen; Z98.51 Tubal ligation status; Z90.710 Acquired absence of both cervix and uterus; Z90.49 Acquired absence of other specified parts of digestive tract; Z87.898 Personal history of other specified conditions
CPT/HCPCS: 80307; 83036; 84439; 84443; 86592; J1200; J1630; J2060